=== PATIENT | male | born 2000 | race Hispanic/Latino ===

== ENCOUNTER 2024-02-05 14:40 | Emergency (ER) | payer BC, OTHER, SELFPAY ==
--- OUTSIDE RECORDS SUMMARY | 2024-02-05 14:42 | XMS REPORT | Continuity of Care Document ---
Author Name Unknown Address [address] [place] [address] [address] [place] [address] [facility] thconnect Address [address] [facility] [place] [address] [place] [address] Care Team Providers Care Design Maker Name Role Phone Jazz Steward Attending Clinician Unavail able Agustin Caraballo Attending Clinician Unavailabl e Physician, No Primary or Family Admitting Clinic graham Unavailable Payers Payer Name Policy Type Policy Number Effective Date Expirati on Date Source Allergies, Adverse Reactions, Alerts Allergy Name Allergy Type Status Severity Reaction(s) Onset Date Inactive Date Treating Clinician Comments Source No Known Allergie s DA Active U 09-04 00:00: 00 [facility] Encounters Start Date/Time End Date/Time Encounter Type Admission Type Attending Clinicians Care Facility Care Department Encounter ID Source 2024-01-30 22:47:00 2024-01-31 00:32:00 Emergency EM [facility] Ste[facility] [id number] [facility] 2023-03-02 20:19:00 2023-03-02 21:44:00 Emergency EM Agustin Caraballo [facility] [id number] [facility] Results Test Description Test Time Test Comments Results Result Co mments Source SOURCE: URINESPECIMEN DESCRIPTION: CCURINALYSIS W/O [id number] 23:34:00* Test Item Value Reference Range Interpretation Comme nts UA COLOR (test code = COLU) Light-Yellow YELLOW UA APPEARANCE (test code = APPU) Clear CLEAR UA GLUCOSE DIPSTICK (test co de = DGLUU) Normal NORMAL UA BILIRUBIN DIPSTICK (test code = BILU) Negative NEGATIVE UA KETONE DIPSTICK (test cod e = KETU) 10 NEGATIVE UA SPECIFIC GRAVITY (test co de = SGU) 1.028 1.000-1.032 N UA BLOOD DIPSTICK (test code = JOURDAN) +2 NEGATIVE A UA PH DIPSTICK (test code = XU) 6.0 5.0-9.0 N UA PROTEIN DIPSTICK (test co de = PROU) 20 MG/DL NEGATIVE A UA UROBILINIOGEN DIPSTICK (t est code = URO) Normal NORMAL UA NITRITE DIPSTICK (test co de = ANGLE) Negative NEGATIVE UA LEUKOCYTE ESTERASE DIPSTI CK (test code = LEUU) Negative NEGATIVE SOURCE: URINESPECIMEN DESCRIPTION: CC- US SCROTUM AND [id number] 21:44:00 [facility] 2000 Sex: M [place]: ANAT St: REG -- [facility] 2000 Age/S: 22[facility]M [address] [facility] Unit#: [id number] Loc: .CARLOS [place], [place] [address] Phys: Agustin Caraballo DO Acct: [id number] DisDate: Status: REG ER PHONE #: [phone] Exam Date: 03/02/20232124 FAX #: [phone] Reason: TESTICLE PAIN EXAMS: CPT CODE: [id number] US SCROTUM AND [facility] [id number] ULTRASOUND SCROTUM/TESTICULAR Dictation location: N13 CLINICAL HISTORY: TESTICLE PAIN TECHNIQUE: Real-time duplex grayscale, color, and spectral Doppler ultrasound of the testes and scrotum was performed using a linear high frequency transducer. Spectral Doppler waveforms and color flow analysis of the testes were also obtained. FINDINGS: The right testes measures 3.7 x 2 x 2.8 cm, the left testes measures 3.6 x 1.8 x 2.6 cm. Both are normal in size and echogenicity, without focal masses. 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 There are normal Color and spectral Doppler images without evidence of torsion or i nfarction. There is a 1 cm simple right epididymal head cyst. There is mild bilateral epididymal hypervascularity. The left side of the scrotum demonstrates mild skin thickening with the skin measuring 0.42 cm in thickness compared to the left measuring 0.34 cm in thickness. There is no evidence ofvaricocele or hydrocele. There is no evidence of inguinal hernia. IMPRESSION: 1. There is bilateralacute epididymitis. There is mild thickening of the skin over the left scrotal wall consistent withcellulitis. 2. There is bilateral microlithiasis noted. There is equivocal opinion in medical literature, regarding increased risk of testicular cancer. Recommend monthly self-examination and annual routine scrotal ultrasound. Consider urology clinic follow-up. at 2144 Reported and signed by: CHELSEA AGUILAR MD PAGE 1 Signed Report (CONTINUED) [place]: [facility] St: REG ---- [facility] 2000 Age/S: 22/M [address] Unit #: [id number] Loc: BEAT[place]Z [place], [place] [address] Phys: Agustin Caraballo DO Acct: [id number] Dis Date: Status: REG ER PHONE #: [phone] Exam Date: 03/02/20232124 FAX #: [phone]: TESTICLE PAIN EXAMS: CPT CODE: [id number] US SCROTUM AND CNTS [id number] (Continued) Facility ACRAccreditation for Ultrasound - March 2011 CC: Agustin Caraballo DO Technologist: MAYA NEGRO RVT Transcribed Date/Time/By: 03/02/2023 (2143) : By: Rosendo Orig Print D/T: S: 03/02/2023 (3003) PAGE 2 Signed Report
[2024-02-05] MEDS ORDERED: CEFAZOLIN SODIUM 1 GM/VIAL ONE (15:23)
[2024-02-05] MEDS ORDERED: TDAP (DIPHTH,PERTUSS(ACELL),TET VAC) 0.5 ML VIAL IMVAC ONE (15:24)
[2024-02-05] MEDS ORDERED: NA CHLORIDE 0.9% 0 ML ONE (15:24)
[2024-02-05] MEDS ORDERED: NA CHLORIDE 0.9% 50 ML ONE (15:34)
[2024-02-05] MEDS ORDERED: LIDOCAINE 1% MPF 30 ML VIAL ONE (15:35)
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
--- NOTE | 2024-02-05 15:49 | RAD REPORT ---
Exam:Hand Left 3 View CLINICAL HISTORY: Left hand pain FINDINGS: No fracture or dislocation seen Soft tissue laceration
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
[2024-02-05 17:47] VITALS: BP 133/79; TEMP 98.4; O2SAT 99
== END 2024-02-05 17:40 | disposition home or self-care (01) ==
LOC: ER 14:40
DX: S61.412A Laceration without foreign body of left hand, initial encounter (principal); S01.81XA Laceration without foreign body of other part of head, initial encounter
CPT/HCPCS: 12002; 12011; 70450; 72125; 96365; 96372; 99284; J0690; J2003